=== PATIENT | male | born 1980 | race Asian ===

== ENCOUNTER 2020-01-01 14:26 | Day surgery (SDC) | payer OTHER ==
[~2020-01-01] VITALS: Ht 177.8 cm; Wt 108.3 kg
[~2020-01-01 14:26] MED LIST: CELE1CAP4 PO
[2020-01-01] MEDS ORDERED: LR 1,000 ML IV ONE (16:00)
[2020-01-01] MEDS ORDERED: ceFAZolin SOD 2 GM in IV 1 EA IV ONE (16:00)
[2020-01-01] MEDS ORDERED: ONDANSETRON 4MG/2ML VIAL As Ordered ONE ×3 (16:09→18:49)
[2020-01-01] MEDS ORDERED: propofoL 200 MG/20 ML VIAL As Ordered ONE ×2 (16:09→17:49)
[2020-01-01] MEDS ORDERED: dexameTHASONE 4 MG/ML 1ML VIAL (J1100 PER 1MG) As Ordered ONE ×2 (16:09→16:57)
[2020-01-01] MEDS ORDERED: LIDOCAINE 2% 100MG/5ML SDV (FOR ANES.) As Ordered ONE (16:09)
[2020-01-01] MEDS ORDERED: MIDAZOLAM INJ 2MG/2ML VIAL (J2250 PER 1MG) As Ordered ONE (16:09)
[2020-01-01] MEDS ORDERED: fentaNYL 250 MCG/5 ML INJECTION (J3010) As Ordered ONE (16:09)
[2020-01-01] MEDS ORDERED: BUPIVACAINE HCL 0.5% 30 ML VIAL As Ordered ONE (16:11)
[2020-01-01] MEDS ORDERED: METOCLOPRAMIDE INJ 10MG/2ML VIAL (J2765 PER 1) As Ordered ONE (16:57)
[2020-01-01] MEDS ORDERED: ACETAMINOPHEN 1000MG 100ML IV BTL (OFIRMEV) (J0131 PER 10MG) As Ordered ONE (17:25)
[2020-01-01] MEDS ORDERED: HYDROmorphone HCL 2 MG/ML 1ML VIAL (J1170) As Ordered ONE (17:41)
[2020-01-01] MEDS ORDERED: KETOROLAC 60MG 2ML VIAL As Ordered ONE (18:03)
[2020-01-01] MEDS ORDERED: fentaNYL 100 MCG/2 ML INJECTION (J3010) As Ordered ONE (18:50)
[2020-01-01] MEDS ORDERED: oxyCODONE 5MG TAB As Ordered ONE (18:50)
[2020-01-01] MEDS: oxyCODONE 5MG TAB PO PRN ×2 (18:55→19:26)
[2020-01-01] MEDS: fentaNYL 100 MCG/2 ML INJECTION (J3010) IV PRN ×4 (18:55→19:16)
[2020-01-01] MEDS ORDERED: LR 1,000 ML IV SCH ×2 (19:15)
[2020-01-01] MEDS ORDERED: ONDANSETRON 4MG/2ML VIAL IV PRN (19:15)
[2020-01-01 20:30] VITALS: BP 135/82
--- NOTE | 2020-02-04 08:52 | REP ---
RIGHT ELBOW: 5-VIEWS HISTORY: Distal biceps tendon repair. 41 seconds of fluoroscopy time is reported. FINDINGS: A sequence of 5 last image hold fluoroscopically obtained spot radiographs of the proximal forearm and elbow document operative biceps tendon repair. LUPE
--- NOTE | 2020-02-19 08:21 | RO ---
DATE OF OPERATION: 01/01/2020 PREOPERATIVE DIAGNOSIS: Right distal biceps tendon tear. POSTOPERATIVE DIAGNOSIS: Right distal biceps tendon tear. PROCEDURE: Right open distal biceps repair. SURGEON: Dr. Todd Al FLOOR INSPECTOR: CAYLA Laura ANESTHESIA: General. IV FLUIDS: Lactated Ringers. ESTIMATED BLOOD LOSS: 5 mL. IMPLANTS: Arthrex distal biceps button times 1 (no screw). CLOSURE: Monocryl and Steri-Strips. PROCEDURE: The patient was identified in the preoperative holding area. The right arm was marked by myself. He was brought to the operating room, placed supine on a well-padded OR table. General anesthesia was induced. He received appropriate IV antibiotics within 1 hour of incision. The right arm was placed on a radiolucent hand table. The right arm was prepped and draped in normal sterile fashion. Prior to incision, timeout was performed per hospital protocol. Francisco Alvares was present for the entire procedure and assisted in all essential portions of the procedure. This included the patient positioning and draping, holding the forearm supinated, holding retractors, and the patient was very muscular which required a skilled assistant finance director to retract appropriately and he assisted with whip-stitching the tendon and wound closure, plan and dressing, and sling. A sterile tourniquet was applied and then the right arm was exsanguinated with an Esmarch bandage and then tourniquet inflated to 250 mmHg. A transverse incision was made with a 15 blade three fingerbreadths distal to the elbow flexion crease. Triple dissection through the subcutaneous fascia with Metzenbaum scissors. The lateral antebrachial cutaneous nerve was identified at the lateral aspect of the incision deep to the fascia and was protected throughout the case. Blunt finger dissection was used to track down to the radial tuberosity. The forearm was held in supination during this approach. Once the radial tuberosity had been approached, a Summerhill elevator was used to confirm appropriate position. I then bluntly dissected through the subcutaneous tissues proximally to the antecubital fossa and the long head of the biceps was noted to have retracted to the elbow flexion crease. This was grasped with an Allis clamp and then the significantly hypertrophied and degenerative tendon edges were trimmed down to a more normal contour. The distal biceps kit was opened and a running, locking whip stitch was placed with the FiberLoop. The tendon was sized to a 7. The sutures were then loaded through the button per routine. Attention was turned back to the radial tuberosity where retractors were positioned, forearm held in supination, and the spay-tipped drill bit was drilled unicortically, positioned checked on the mini C-arm AP view and this was repositioned just distal and ulnar. Then, it was drilled bicortically and the bony debris removed with irrigation. I then used a 7 mm acorn reamer over the guide pin and a unicortical socket was drilled. Extensive irrigation used to remove bony debris. The button was then passed through the drill hole, the sutures were toggled which flipped the button, and dunked the tendon into the socket. Appropriate position of the button was confirmed on AP and lateral views with the mini C-arm. With the elbow in 40 degrees of flexion and the tendon appropriately seated in the socket, I first tied the FiberWire sutures by hand. Then, the curve-free needle was used to pass one limb of the suture back through the tendon just proximally and that was locked and then sutures were tied again by hand for 2 points of fixation. The tendon was under good tension. The incision was re-irrigated. Final position of the button confirmed on AP and lateral views with the mini C-arm. The fascia was then carefully closed with a 2-0 Vicryl suture and then retractors were positioned to avoid some of the larger superficial veins and to avoid the lateral antebrachial cutaneous nerve. The far lateral aspect of the fascia was left open to decrease scarring around the nerve. I then performed a 2-0 Vicryl subcuticular closure and then a running Monocryl. Tourniquet was let down with excellent reperfusion. I injected 20 mL of 0.5% Marcaine without epinephrine. Steri-Strips were placed. Sterile dressing applied. He was then placed into a well-padded, long-arm posterior splint at 90 degrees of flexion and a sling applied. He was extubated and transferred to the PACU in stable condition. All counts were correct x2. COMPLICATIONS: None. LUPE
== END 2020-01-01 20:43 | disposition home or self-care (01) ==
LOC: M SDC 14:26
PROVIDERS: ATTEND Orthopaedic Surgery
DX: S46.211A Strain of muscle, fascia and tendon of other parts of biceps, right arm, initial encounter (principal); X58.XXXA Exposure to other specified factors, initial encounter; Y92.89 Other specified places as the place of occurrence of the external cause; Y93.9 Activity, unspecified; Y99.9 Unspecified external cause status; Z91.018 Allergy to other foods; K21.9 Gastro-esophageal reflux disease without esophagitis; Z79.899 Other long term (current) drug therapy
CPT/HCPCS: 24342; 76000; C1713; J0131; J0690; J1100; J1170; J1885; J2250; J2405; J2765; J3010